=== PATIENT | male | born 1965 | race African-American/Black ===

== ENCOUNTER 2018-02-28 06:32 | Inpatient (IN) | payer OTHER ==
[2018-02-21 15:55] VITALS: BMI 25.8
[2018-02-28] MEDS ORDERED: ROPIVICAINE 0.2%/MORPH PF/KETOROLAC - 51ML DISP.SYRINGE IA ONE (07:19)
[2018-02-28] MEDS ORDERED: MIDAZOLAM HCL 2 MG/2 ML SINGLE DOSE VIAL ONE (07:20)
[2018-02-28] MEDS ORDERED: ROPIVACAINE HCL 0.5% 30ML VIAL ONE (07:20)
[2018-02-28] MEDS ORDERED: DEXAMETHASONE SOD PHOSPHATE/PF 10 MG/ML SDV ONE (07:20)
[2018-02-28] MEDS ORDERED: BUPIVACAINE LIPOSOME/PF (EXPAREL) 266 MG/20 ML VIAL ONE (07:20)
--- NOTE | 2018-02-28 07:49 | HP ---
History & Physical Update - History History: No Change - Physical Physical: No Change - Assessment Assessment: No Change - Plan Plan: No Change (no interval changes since 02/03/[address] Interiano)
[2018-02-28] MEDS ORDERED: MAGNESIUM HYDROX 2400MG/30ML ORAL SUSPENSION 30 ML CUP PO PRN (11:24)
[2018-02-28] MEDS ORDERED: MAG HYDROX/AL HYDROX/SIMETH 30 ML UNIT-DOSE CUP PO PRN (11:24)
[2018-02-28] MEDS ORDERED: LACTATED RINGERS SOLUTION 1,000 ML IV SCH (11:30)
[2018-02-28] MEDS ORDERED: ACETAMINOPHEN 325 MG TABLET (FP) PO PRN (11:31)
[2018-02-28] MEDS ORDERED: oxyCODONE HCL 5 MG TABLET PO PRN (11:32)
--- NOTE | 2018-02-28 11:38 | OP ---
Operative Note - Note: Operative Date: 02/28/18 Pre-Operative Diagnosis: right knee osteoarthritis Operation: right total knee makoplasty Post-Operative Diagnosis: Same as Pre-op Surgeon: Jean Paul Lux Ocean Export Agent: Betsey Mistry Anesthesiologist/VETERAN APPEALS REVIEWER: Leo Guillen Anesthesia: Spinal, Local (with sedation) Specimens Removed: right distal femur, right proximal tibia Estimated Blood Loss (mls): 150 Drains & Tubes with Location: hemovac right knee Fluid Volume Replaced (mls): 1,100 Operative Report Dictated: Yes
--- NOTE | 2018-02-28 11:40 | SURG ---
Surgery Payroll Tax Analyst Note Payroll Tax Analyst: Betsey Mistry PA-C Date of Service: 02/28/18 Diagnosis: right knee osteoarthritis Procedure: right total knee makoplasty I was present for the entirety of the operative procedure. For further detail, please refer to operative report. Visit type - Case Type Case Type: Scheduled Admission - Emergency Emergency Visit: No - New patient This patient is new to me today: Yes Date on this admission: 02/28/18
[2018-02-28] MEDS ORDERED: ONDANSETRON 4 MG/2 ML VIAL ONE (12:30)
[2018-02-28] MEDS: ONDANSETRON 4 MG/2 ML VIAL IVPUSH PRN (12:35)
[2018-02-28] MEDS: ACETAMINOPHEN 325 MG TABLET (FP) PO SCH ×2 (12:50→18:38)
[2018-02-28] MEDS: oxyCODONE HCL 5 MG TABLET PO PRN ×3 (13:08→22:26)
[2018-02-28] MEDS ORDERED: HYDROmorphone HCL CARPU-JECT 2 MG/1 ML DISP.SYRIN IVPB ONE (15:45)
[2018-02-28] MEDS: CEFAZOLIN 2 GM/D5W 2 GM/50 ML ML IVPB SCH (16:48)
[2018-02-28] MEDS: ASPIRIN 325 MG TABLET PO SCH (20:25)
[2018-02-28] MEDS: oxyCODONE HCL 10 MG SUSTAINED ACTING TABLET PO SCH (21:27)
[2018-02-28] MEDS: CELECOXIB 200 MG CAPSULE PO SCH (21:27)
[2018-02-28] MEDS: SENNOSIDES/DOCUSATE COMBO (SENNA PLUS) TABLET (UD) PO SCH (21:27)
[2018-03-01] MEDS: CEFAZOLIN 2 GM/D5W 2 GM/50 ML ML IVPB SCH (01:13)
[2018-03-01] MEDS: ACETAMINOPHEN 325 MG TABLET (FP) PO SCH ×4 (01:14→18:41)
[2018-03-01] MEDS: oxyCODONE HCL 5 MG TABLET PO PRN ×5 (05:35→20:11)
--- NOTE | 2018-03-01 07:43 | OP ---
DATE OF OPERATION: DATE OF DICTATION: 02/28/2018 PREOPERATIVE DIAGNOSIS: Right knee osteoarthritis. POSTOPERATIVE DIAGNOSIS: Right knee osteoarthritis. OPERATION PERFORMED: Right total knee replacement with To robot. SURGEON: Jean Paul Lux M.D. WIRE PREPARATION WORKER: BARRY TYPE OF ANESTHESIA: Spinal. DISPOSITION: The patient returned to the recovery room in stable condition. COMPONENTS USED: [place] [employer] size 4 right posterior-stabilized femur, size 5 tibia, a 9-mm posterior-stabilized attribute insert and 32-mm patella. The femur and the tibia were not cemented. DRAINS: One Hemovac. ESTIMATED BLOOD LOSS: 100 mL. TOTAL TOURNIQUET TIME: 2 hours. FINDINGS: The preoperative alignment was 5 degrees of flexion contracture and 3 degrees of valgus off the mechanical access. The postoperative alignment was 1 degree of valgus off the mechanical access and range of motion from 0 to 140 degrees. INDICATIONS FOR PROCEDURE: The patient failed nonoperative treatment for right knee arthritis and was indicated for right total knee replacement. Preoperatively, in the waiting area as well as in the office, I had a long discussion with the patient regarding with the patient regarding the plan, the expected outcome, and the risks, benefits and alternatives of surgery. The risks include but are not limited to infection, which may require future surgery and removal of implants; bleeding, which may require transfusion; damage to nerves, arteries, veins, tendons, muscles and other adjacent structures, leading to possible numbness, weakness, decreased motion and/or possible need for surgical repair. I also discussed with him the possibility of intraoperative and postoperative fractures, implant loosening, stiffness, need for extensive therapy, need for revision surgery for a variety of reasons. I also discussed blood clots and other medical complications. This was discussed at length, and consent was obtained. PROCEDURE IN DETAIL: The patient was taken to the operating room and placed on the operating table in the supine position, following the induction of spinal anesthesia. A well-padded tourniquet was placed high on the right thigh, and the right lower extremity was prepped and draped in a sterile fashion. A time-out was performed to confirm the correct side and verify that this side was marked, to confirm the correct patient and procedure to be performed, as well as that the patient received the appropriate preoperative antibiotics and tranexamic acid, and had a compression device on the nonoperative device, and had been registered in the [employer] computer. The tourniquet was elevated, followed by a midline incision and a medial parapatellar arthrotomy. Checkpoints were placed on the tibia and the femur through stab incisions proximal to the incision and distal to the incision, 1 handbreadth. We placed 2 pins and placed the trackers. The patient was registered on the robot via points and range of motion, and we made our preoperative plan. We used the [employer] robot to make our bone cuts while protecting the surrounding soft tissues. A laminar alligator trapper was then placed and we had taken off the cruciate ligaments, menisci and posterior osteophytes. A spacer block was placed and we had neutral alignment and we were well-balanced with regard to varus and valgus stress. A femoral sizing guide was applied, and a size 4 was found to be appropriate. The cutting block was placed and we cut the notch. A tibial trial baseplate was placed in the appropriate external rotation. The femoral trial was applied and a lug holes were drilled. With the 9-mm poly, there was good stability, range of motion, patellar tracking and soft tissue tension. The patella was then measured to be 24 mm, and we removed 9.5 mm using a guide, and we reconstructed with a 32-mm button and performed a lateral double cut with the patellar trial in place. The patella tracked centrally. There was good stability, range of motion and soft tissue tension. The tibial trial was then punched in the appropriate external rotation and holes were drilled for the cross plugs. We then impacted our tibia and a femur into position, and they seated flush. We inserted the final poly, and it seated flush. We brought the knee to full extension and cemented the patella. We then did a 3- minute with a diluted Betadine solution, copiously irrigated the knee and injected local anesthetic. When the cement had hardened, the knee had good stability, range of motion and soft tissue tension. The patella tracked centrally and was well- balanced. Our final [facility] measurements were taken. Checkpoints and trackers were removed. The wound was copiously irrigated. A deep drain was placed. Arthrotomy was closed with 0 Vicryl and 0 V-Loc. 2-0 vicryl and [place] were used to close the skin. The knee was wrapped in a dry, sterile, compressive dressing. The tourniquet was released. The compartments were soft at the end of the procedure, and pulses were palpated. X -ray was taken. WOUND CLASSIFICATION: Clean. SPECIMENS: Bone. COMPLICATIONS: None known. Sundeep [id number] MTDD
[2018-03-01] MEDS: CELECOXIB 200 MG CAPSULE PO SCH ×3 (08:06→21:11)
[2018-03-01] MEDS: ASPIRIN 325 MG TABLET PO SCH (08:06)
[2018-03-01] MEDS: SENNOSIDES/DOCUSATE COMBO (SENNA PLUS) TABLET (UD) PO SCH ×3 (08:07→21:11)
[2018-03-01] MEDS: oxyCODONE HCL 10 MG SUSTAINED ACTING TABLET PO SCH ×3 (08:07→21:11)
--- NOTE | 2018-03-01 08:18 | PN ---
Progress Note (short form) - Note Progress Note: Surgery POD#1 right total knee makoplasty patient seen and examined at bedside. Patient states his pain is 10/10 but appears relatively comfortable while sitting in chair this morning, nursing states he was comfortable throughout the evening. He has been OOB to chair but has not been seen by PT yet. He states that he is having some nausea from all the oral medications as he does not take any oral meds at home but he is tolerating a regular diet. He denies any fever, CP or SOB. Vital Signs Temp 98.4 F 03/01/18 06:00 Pulse 66 03/01/18 06:00 Resp 20 18 06:00 BP 115/82 03/01/18 06:00 Pulse Ox 100 03/01/18 07:04 Intake & Output 02/28/18 02/28/18 03/01/18 11:59 23:59 11:59 Intake Total 1300 1425 1225 Output Total 2500 710 Balance 1300 -1075 515 Weight 170 lb Intake: IV 1300 875 875 Lactated Ringers Solution 875 875 1,000 ml @ 125 mls/hr IV ASDIR BELGICA Rx#: [id number] IVPB 50 100 Oral 500 250 Output: Drainage 500 110 Right Knee 500 hemovac 110 Urine 2000 600 Void 2000 600 Other: Voiding Method Urinal Toilet # Unmeasured Voids Void 1 Height 5 ft 8 in Body Mass Index (BMI) 25.8 Weight Measurement Method Stated by Patient Labs pending: PE: A&Ox3, NAD unlabored resp on RA right LE, Knee with moderated effusion appropriate to status, dressing C/D/I and Surrounding tissue intact with no evidence of tracking erythema or ecchymosis. ROM from 5-35 degrees before pain blocking. Hemavac drain removed with tip fully intact. serosanginous d/c in drain. Drain site clean and dry with no d/c or active bleeding, pressure dressing applied. B/L LE compartments soft, supple and non-tender, NVID with +2 pedal pulses. Problem List - Problems (1) Osteoarthritis, knee Assessment/Plan: POD #1 right total knee arthroplasty with pain that appears to be appropriate to status. Plan: 1) continue DVT prophylaxis with b/l teds, scds and Aspirin 325mg BID x 4 wks 2) OOb with PT and walker, WBAT 3) ice and elevate right knee 4) pain control to be adjusted by Dr Lux PRN- will evaluate after patient up with therapy 5) AROM and PROM right knee as tolerated. Code(s): M17.10 - UNILATERAL PRIMARY OSTEOARTHRITIS, UNSPECIFIED KNEE
[2018-03-01 08:54] LABS: ANION GAP 5 (8-16); BLOOD UREA NITROGEN 11 mg/dl (7-18); CALCIUM 8.4 mg/dl (8.4-10.2); CHLORIDE 100 mmol/L (98-107); CO2 27 mmol/L (22-28); GLUCOSE,RANDOM 107 mg/dl (74-106); POTASSIUM 3.2 mmol/L (3.5-5.1); SODIUM 132 mmol/L (136-145)
[2018-03-01 09:03] LABS: HEMATOCRIT 32.6 % (35.4-49); HEMOGLOBIN 10.9 GM/dl (11.7-16.9); MCH 27.7 pg (25.7-33.7); MCHC 33.4 g/dl (32.0-35.9); MEAN CELL VOLUME 82.8 fl (80-96); MEAN PLT VOLUME 8.1 fl (7.5-11.1); PLATELET COUNT 150 K/MM3 (134-434); RBC 3.93 M/mm3 (4.00-5.60); RDW 13.1 % (11.9-15.9); WHITE BLOOD COUNT 5.8 K/mm3 (4.0-10.8)
[2018-03-01] MEDS: PANTOPRAZOLE 40 MG TABLET (FP) PO SCH (09:11)
[2018-03-01] MEDS: MULTIVITAMINS (DAILY MVI) TABLET (FP) PO SCH (09:11)
--- NOTE | 2018-03-01 11:47 | PN ---
Progress Note (short form) - Note Progress Note: 52M POD1 s/p R TKR under spinal anesthetic with peripheral nerve blocks for post operative pain relief. Pt states that he has 8-10/10 pain, but was seen ambulating comfortably with walker. Pt states that oxycodone has caused nausea and somnolence. AVSS. Motor and sensory function intact in bilateral lower extremities. Noted that patient has been taking oxycodone 10mg prn. Recommend 5mg pills instead for breakthrough pain with continuation of non narcotic adjuvants.
[2018-03-01] MEDS: ONDANSETRON 4 MG/2 ML VIAL IVPUSH PRN (18:41)
[2018-03-02] MEDS: ACETAMINOPHEN 325 MG TABLET (FP) PO SCH ×3 (01:33→12:06)
[2018-03-02] MEDS: oxyCODONE HCL 5 MG TABLET PO PRN ×3 (01:55→10:51)
[2018-03-02 06:14] VITALS: BP 110/65; PULSE 72; TEMP 98.7
[2018-03-02 08:19] LABS: ANION GAP 3 (8-16); BLOOD UREA NITROGEN 9 mg/dl (7-18); CALCIUM 8.4 mg/dl (8.4-10.2); CHLORIDE 100 mmol/L (98-107); CO2 29 mmol/L (22-28); GLUCOSE,RANDOM 108 mg/dl (74-106); POTASSIUM 3.1 mmol/L (3.5-5.1); SODIUM 132 mmol/L (136-145)
[2018-03-02 08:29] LABS: HEMATOCRIT 29.8 % (35.4-49); HEMOGLOBIN 10.2 GM/dl (11.7-16.9); MCHC 34.2 g/dl (32.0-35.9); MEAN CELL VOLUME 81.9 fl (80-96); MEAN PLT VOLUME 7.9 fl (7.5-11.1); PLATELET COUNT 129 K/MM3 (134-434); RBC 3.64 M/mm3 (4.00-5.60); WHITE BLOOD COUNT 6.8 K/mm3 (4.0-10.8)
--- NOTE | 2018-03-02 08:44 | DS ---
"Physical Exam: SUBJECTIVE: POD #2 right total makoplasty. Patient has been OOB and ambulating without assistance and a walker. He is still having some nausea and even vomited yesterday which he attributed to the amount of pills he is taking. He is tolerating his diet although his appetite is reduced and he denies ay CP, SOB , Fever or chills. OBJECTIVE: Vital Signs Period Temp Pulse Resp BP Sys/Christina Pulse Ox Last 24 Hr 98.3 F-99.6 F 72-76 18-20 110-145/63-65 97-100 PHYSICAL EXAM GENERAL: The patient is awake, alert, and fully oriented, in no acute distress. HEAD: Normal with no signs of trauma. EYES: extraocular movements intact, sclera anicteric, conjunctiva clear. NECK: Trachea midline, full range of motion, supple. LUNGS: unlabored resp on RA, no accessory muscle use. Right knee with moderate effusion appropriate to status, Dressings C/D/I with No tracking erythema or ecchymosis, ROM from 5-90 degrees with AAROM. LE compartment soft, supple and non-tender. . NEUROLOGICAL: Cranial nerves II through XII grossly intact. Normal speech, gait not observed. PSYCH: Normal mood, normal affect. SKIN: Warm, dry, normal turgor, no rashes or lesions noted. LABS Laboratory Results - last 24 hr 03/01/18 03/01/18 03/02/18 07:45 07:45 07:30 WBC 5.8 RBC 3.93 L Hgb 10.9 L Hct 32.6 L MCV 82.8 MCH 27.7 MCHC 33.4 RDW 13.1 Plt Count 150 MPV 8.1 Sodium 132 L 132 L Potassium 3.2 L 3.1 L Chloride 100 100 Carbon Dioxide 27 29 H Anion Gap 5 L 3 L BUN 11 9 Creatinine 1.0 1.0 Random Glucose 107 H 108 H Calcium 8.4 8.4 HOSPITAL COURSE: normal without complication Date of Admission:02/28/18 Date of Discharge: 03/02/18 Minutes to complete discharge: 25 Discharge Summary Reason For Visit: OSTEOARTHRITIS RIGHT KNEE Current Active Problems Osteoarthritis, knee (Acute) Condition: Good - Instructions Diet, Activity, Other Instructions: Post Operative Instructions: 1. Pain following a lateral release is variable and can be significant. Some patients will have more pain than others. You have been provided with a prescription for medication that contains a narcotic. You are not allowed to drive while on this medication. You can take Tylenol (Acetaminophen) when taking the pain medication.. 2. You should not remove the bandages for 72 hours unless directed otherwise. You are not allowed to bathe or go swimming until the carl are removed. Do not put any creams or lotions over the incisions. 3. You are allowed to put all your weight on the leg and bend your knee, however , you should use a walker for assistance unless directed otherwise. 4. Try not to lie down with a pillow under your knee. Instead the pillow should be under your ankle, thus allowing you to push your knee straight down into the bed. 5. Swelling around the knee is normal and Ice should be applied to the knee for 20mins every hour awake for as many days as you would like 6. The area around the knee and along the front of your wiggins may also become swollen and black and blue. 7. Please call the office to confirm your post op visit 8. If you experience chest pain, or shortness of breath please seek emergency treatment immediately. 9. If for any reason you believe you may have an infection or are concerned, please call the office. 10. Please call our office with any questions; we will review the surgical findings during your post operative visit. 11. Continue Aspirin (otc) 325mg twice daily x 4 weeks post op to prevent blood clots This report was requested by: Betsey Cruz | Reference #: [id number] Disposition: HOME - Home Medications Comprehensive Discharge Medication List: Ambulatory Orders Milk Thistle 500 mg PO DAILY 02/21/18 Multivitamin [Multiple Vitamins] 1 each PO DAILY 02/21/18 oxyCODONE HCL [Roxicodone -] 5 - 10 mg PO Q4H PRN #30 tablet MDD 6 02/28/18 [place]-3 Fatty Acids/Fish Oil [Fish Oil 1,000 mg Capsule] 1 each PO DAILY - Do not take while on Celebrex and Aspirin. Problem List - Problems (1) Osteoarthritis, knee Assessment/Plan: POD #2 right total knee arthroplasty with some nausea and vomiting 2/2 oral medications Plan: 1) Continue DVT prophylaxis with b/l teds, scds and Aspirin 325mg BID x 4 wks 2) OOb with PT and walker, WBAT 3) Ice and elevate right knee 4) Zofran for nausea PRN 5) D/c home and follow up with Dr Lux as outpatient as scheduled. Code(s): M17.10 - UNILATERAL PRIMARY OSTEOARTHRITIS, UNSPECIFIED KNEE Qualifiers: Osteoarthritis type: primary Laterality: right Qualified Code(s): M17.11 - Unilateral primary osteoarthritis, right knee This patient is new to me today: Yes Date on this admission: 03/02/18 Emergency Visit: No Critical Care patient: No - Discharge Referral Referred to [facility] Med P.C.: No"
[2018-03-02] MEDS: ASPIRIN 325 MG TABLET PO SCH (08:58)
[2018-03-02] MEDS: oxyCODONE HCL 10 MG SUSTAINED ACTING TABLET PO SCH (09:06)
[2018-03-02] MEDS: CELECOXIB 200 MG CAPSULE PO SCH (09:07)
[2018-03-02] MEDS: SENNOSIDES/DOCUSATE COMBO (SENNA PLUS) TABLET (UD) PO SCH (09:07)
[2018-03-02] MEDS: PANTOPRAZOLE 40 MG TABLET (FP) PO SCH (09:07)
[2018-03-02] MEDS: MULTIVITAMINS (DAILY MVI) TABLET (FP) PO SCH (09:07)
--- NOTE | 2018-03-02 15:32 | PATH ---
Surgical Pathology Report Patient Name: CHRISTIAN REYES Med. Rec. #: [id number] /Age/Gender: 1965 (Age: 52) / M Account: [id number] Location: [facility] MED-SURG Taken: 02/28/2018 Received: 02/28/2018 Reported: 03/02/2018 Physicians: Jean Paul Lux M.D. Specimen(s) Received BONE RIGHT KNEE Clinical History Right knee osteoarthritis Final Diagnosis BONE, RIGHT KNEE, TOTAL KNEE REPLACEMENT: DEGENERATIVE JOINT DISEASE. Electronically Signed Betsey Lozoya M.D. Gross Description Received in formalin labeled "bone right knee," is a 13.0 x 10.5 x 2.5 cm aggregate of multiple portions of bone and soft tissue. The tibial plateau measures 8.3 x 5.5 x 1.7 cm. There is a 1.5 cm in greatest dimension area of eburnation identified. The remaining articular surfaces are escalante-yellow and focally granular. The underlying trabecular bone is yellow and hard. Transportation Design Engineer sections are submitted in one cassette, following decalcification. /03/01/2018 [facility]03/01/2018
== END 2018-03-02 14:00 | disposition home health service (06) | DRG 302 ==
LOC: FM/S 06:32
PROVIDERS: ADMIT Orthopaedic Surgery; ATTEND Orthopaedic Surgery
PROC: 8E0Y0CZ Robotic Assisted Procedure of Lower Extremity, Open Approach (ICD-10-PCS; 2018-02-28)
PROC: 0SRC0J9 Replacement of Right Knee Joint with Synthetic Substitute, Cemented, Open Approach (ICD-10-PCS; principal; 2018-02-28 08:52)
DX: M17.11 Unilateral primary osteoarthritis, right knee (principal); Z88.0 Allergy status to penicillin
CPT/HCPCS: 36415; 73560-TC-RT-FY; 80048; 85027; 88304-TC; 88311-TC; 94010; 94760; 97116-GP; 97161-GP